=== PATIENT | female | born 1955 | race Caucasian/White ===

== ENCOUNTER → 2017-03-30 10:04 | Outpatient (CLI) | payer BC, MEDICARE ==
[2012-08-01 11:01] VITALS: BMI 32.6
== END | disposition home or self-care (01) ==
LOC: D.RT 10:00
DX: J44.9 Chronic obstructive pulmonary disease, unspecified (principal)

== ENCOUNTER 2017-09-14 12:11 | Day surgery (SDC) | payer BC, MEDICARE ==
[~2017-09-14] VITALS: Ht 160 cm; Wt 82.3 kg
[2017-09-14 13:00] LABS: HEMATOCRIT 46.2 % (36.0-48.0); HEMOGLOBIN 14.5 g/dL (12-16); MCH 28.2 pg (26.0-34.0); MCHC 31.4 g/dL (31.0-37.0); MCV 89.7 fL (80.0-100.0); MEAN PLATELET VOLUME 11.7 fL (7.4-10.4); RBC 5.15 10x6/uL (4.00-5.40); RDW 12.8 % (11.5-14.5); WBC 8.2 10x3/uL (4.8-10.8)
[2017-09-14 13:18] LABS: CALC OSMOLALITY 285 mosm/kg (275-300); CALCIUM 9.3 mg/dL (8.5-10.1); CARBON DIOXIDE 31.2 mmol/L (21.0-32.0); CHLORIDE - SERUM 101 mmol/L (98-107); CREATININE - SERUM 0.8 mg/dL (0.6-1.3); GLUCOSE 184 mg/dL (74-106); POTASSIUM - SERUM 4.2 mmol/L (3.5-5.1); SODIUM 142 mmol/L (136-145); UREA NITROGEN 7 mg/dL (7-18); eGFR NON AFRICAN AMERICAN 77 mL/min (90-120)
[2017-09-14] MEDS ORDERED: THEOCHRON300 MG PO (14:20)
[2017-09-14] MEDS ORDERED: SPIRIVA18 MCG INH (14:21)
[2017-09-14] MEDS ORDERED: DESERYL100 MG PO (14:21)
[2017-09-14] MEDS ORDERED: REQUIP0.5 MG PO (14:22)
[2017-09-14] MEDS ORDERED: SINGULAIR10 MG PO (14:22)
[2017-09-14] MEDS ORDERED: NOVOLOG100 U/M1 SC (14:23)
[2017-09-14] MEDS ORDERED: KLOR-CON 1010 MEQ PO (14:23)
[2017-09-14] MEDS ORDERED: NEURONTIN 300300 MG PO (14:23)
[2017-09-14] MEDS ORDERED: CELEXA40 MG PO (14:24)
[2017-09-14] MEDS ORDERED: LASIX40 MG PO (14:24)
[2017-09-14] MEDS ORDERED: MUCINEX600 MG PO (14:24)
[2017-09-14] MEDS ORDERED: TOUJEO SOL300 UNIT/1 (14:25)
[2017-09-14] MEDS ORDERED: XOPENEX HFA15 GM (14:25)
[2017-09-14] MEDS ORDERED: XANAX0.25 MG PO (14:26)
[2017-09-14] MEDS ORDERED: ATROVENT HFA12.9 GM INH (14:26)
[2017-09-14 14:27] VITALS: BP 140/77; Ht 160 cm; Wt 82.3 kg
--- NOTE | 2017-09-14 15:52 | NUR ---
TRANSVERSE POLYP WITH COLD SNARE NO HEAT.
--- NOTE | 2017-09-14 15:57 | NUR ---
CECCAL POLYP WITH HOT SNARE
--- NOTE | 2017-09-14 16:18 | NUR ---
[facility] 2CC OF KAIA INK ASCENDING POLYP AT 80CM.
--- NOTE | 2017-09-14 17:48 | NUR ---
1800 DISCHARGE INSTRUCTIONS COMPLETE. PT HAS NO QUESTIONS OR CONCERNS AT THIS TIME. PT TO FOLLOW UP WITH DOCTOR NAIN-TOLD PT TO CALL TO MAKE APPOINTMENT SINCE IT WAS AFTER HOURS-ALSO FAXED ORDER TO DR. GILLETTE'S OFFICE. ESCORTED OUT BY [facility] [place].
--- NOTE | 2017-09-20 11:02 | OP ---
PATIENT NAME: WERO GOLDSTEIN MEDICAL RECORD: [id number] :57 LOCATION:[facility] ADMISSION DATE: SURGEON: KAREN LOCKHART DO DATE OF OPERATION: 09/14/2017 PROCEDURE: Colonoscopy with polypectomy, biopsy, and submucosal injection. INDICATIONS FOR PROCEDURE: Screening colonoscopy and chronic constipation. SCOPE: Olympus video pediatric colonoscope. MEDICATIONS: Propofol per anesthesia. ESTIMATED BLOOD LOSS: Minimal. COMPLICATIONS: None. FINDINGS: Informed consent was given. The patient was made comfortable with the above medication. After reaching an adequate level of sedation by slow IV push, the patient was placed on her left side. A digital rectal examination was performed and it was normal. The endoscope was then advanced under direct visualization through the rectum to the cecum with visualization of the appendiceal orifice and ileocecal valve. The scope was slowly withdrawn and mucosa was carefully examined. The prep quality was good. There was evidence of pandiverticulosis on this examination without evidence of diverticulitis. In the cecum, there were 2 polyps located right near each other. They were benign appearing and sessile. One of the 2 polyps did have a slight extension of polypoid features, which were not raised. The larger of the two measured approximately 1 cm while the second measured approximately 4 mm in diameter. These were located right in the appendiceal orifice. Due to their location, biopsies were taken without cautery or removal. In the ascending colon, there was a large polyp located on a fold. It had extensions along the fold. It measured approximately 1.5 cm x 2.5 cm. A lift was attempted in consideration of removal of this polyp. The margins could not clearly be seen upon lifting, so no removal was attempted. Biopsies were taken to submit for histopathology. Due to the size and location of this polyp, tattoo was placed approximately 2 cm both proximally and distally on the wall of the colon that the polyp was located on. In the transverse colon, there was a small benign appearing sessile polyp, which measured approximately 3 mm in diameter. It was removed using hot forceps in one piece and completely retrieved. There was a second polyp located in the transverse colon, which was a benign appearing sessile polyp, which measured approximately 6 mm in diameter. It was removed using a hot snare in one piece and completely retrieved. In the rectum, there were 3 separate polyps, which were benign-appearing and sessile. They ranged in size from 4 mm to 8 mm in size. They were all removed using a hot snare in one piece and completely retrieved. Retroflexion was performed in the rectum with a normal appearing rectal wall. The endoscope was then withdrawn from the patient. The patient tolerated the procedure well and there were no complications. IMPRESSION: 1. Multiple polyps of differing sizes and locations as described above. 2. Pandiverticulosis of moderate severity. PLAN AND RECOMMENDATIONS: 1. Discharge home when recovery parameters are met. OPERATIVE REPORT [id number] WERO GOLDSTEIN 2. Follow up biopsy specimen results. 3. High fiber diet. 4. Continue current medications. 5. Referral to Dr. Robbins for consideration of whether or not the cecal polyp can be removed endoscopically versus surgical removal due to its location as well as evaluation of the ascending colon polyp for combination of snare therapy and APC therapy versus surgical resection. Biopsies are pending of these polyps. 6. Further recall recommendations will be dependent on therapy with Dr. Robbins. TRANSINT:[id number] Voice Confirmation ID: [id number] DOCUMENT ID: [id number] KAREN LOCKHART DO at 1102 CC: [id number] DICTATION DATE: 09/14/17 1649 CIRCULAR KNITTER HELPER: 09/14/17 1724 [facility] 09/14/17 [address] [place] [address]
[2017-11-28] MEDS ORDERED: CITRACAL + D E1 EACH PO (14:58)
== END 2017-09-14 18:00 | disposition home or self-care (01) ==
LOC: D.OPS 12:11
PROVIDERS: Anesthesiology
DX: Z12.11 Encounter for screening for malignant neoplasm of colon (principal); K63.5 Polyp of colon; K62.1 Rectal polyp; K57.30 Diverticulosis of large intestine without perforation or abscess without bleeding; K59.09 Other constipation; Z01.812 Encounter for preprocedural laboratory examination

== ENCOUNTER 2017-11-29 05:10 | Inpatient (IN) | payer BC, MEDICARE ==
[~2017-11-29] VITALS: Ht 160 cm; Wt 82.7 kg
[2017-11-29] VITALS (10 sets, daily range): BP systolic 87–120; BP diastolic 55–75; BMI 32.8; BMI 32.3
--- NOTE | ~2017-11-29 | OP ---
PATIENT NAME: WERO GOLDSTEIN MEDICAL RECORD: [id number] :57 LOCATION:[facility] D.2312 ADMISSION DATE:11/29/17 SURGEON: CHINO GILLETTE MD DATE OF OPERATION: 11/29/2017 PREOPERATIVE DIAGNOSES: 1. 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 2. Ascending colon polyp. 3. End-stage lung disease. POSTOPERATIVE DIAGNOSES: 1. 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 2. Ascending colon polyp. 3. Extensive intra-abdominal adhesions. 4. End-stage lung disease. PROCEDURE: Hand-assisted laparoscopic surgery -- right hemicolectomy with conversion to an open procedure. SURGEON: Chino Gillette MD CYANIDE CASE HARDENER: None. BLOOD LOSS: Minimal. ANESTHESIA: General. COMPLICATIONS: None. The risks, possible complications and alternatives to the procedure were explained to the patient. She elects to proceed. OPERATIVE COURSE: The patient was conveyed to the operating room electively on 11/29/2017. General anesthesia was induced by the anesthesia staff. The abdomen was sterilely prepped and draped. A small skin arnold was accomplished in the left upper quadrant. A Veress needle was inserted through the skin arnold into the peritoneal cavity. CO2 insufflation was begun. Once a sufficient pneumoperitoneum had been achieved, a 5-mm trocar was inserted in the left side of the abdomen. There were extensive intraabdominal adhesions and it was apparent that a significant adhesiolysis was going to need to take place in order to perform this procedure. A total of 4 more trocars were inserted either in the midline or in the left side of the abdomen. I began to take down numerous adhesions. These adhesions were grade II and grade III adhesions to the undersurface of the hernia mesh. Once I had taken out all the adhesions that I could from the left side of the abdomen, I elected to insert the GelPort. An incision was accomplished transversely in the right side of the abdomen. I dissected down through the skin and subcutaneous tissue. I incised the external oblique aponeurosis along the direction of its fibers. I then incised the internal oblique muscle along the direction of its fibers. I entered the peritoneal cavity sharply. The Rupesh retractor was placed. The GelPort was then applied over the Rupesh retractor. CO2 insufflation was begun. Laparoscopically, I incised along the right white line of Toldt. I mobilized the hepatic flexure as well. I then took off the GelPort. I exteriorized the right colon. Some additional OPERATIVE REPORT [id number] WERO GOLDSTEIN adhesiolysis was performed through the Rupesh retractor. This was a thorough adhesiolysis and I lysed all the adhesions that I could identify. I ran the small bowel twice from the ligament of Treitz to the ileocecal valve. There was no apparent injury to the small bowel. Once I had exteriorized the right colon, I swept down the ureter. I swept down the duodenum. I chose the proximal extent of my resection to be just proximal to the ileocecal valve. A window was created in the mesentery of the small bowel and I stapled across the ileum with a MUKESH-75 stapler. The distal extent of the resection was going to be the proximal transverse colon. A window was created in the mesentery of the colon and I stapled across the colon here with the MUKESH-75 stapler. The interpose mesentery was taken down with the EnSeal device. Meticulous hemostasis was achieved with the EnSeal device. The specimen was then placed on the back table and I opened the specimen and I identified the tattooed areas that marked the distal extent of the polypoid lesions. I then rescrubbed and regowned. I brought the distal small bowel into apposition with the transverse colon. It was kept in place with 3-0 Vicryl sutures. A small enterotomy and small colotomy were accomplished. Anvils of the MUKESH-75 stapler were advanced and then fired. The resulting enterocolonic defect was then closed with a single firing of TA 60 stapler. I ensured the small bowel was not twisted on its mesentery. I irrigated the right upper quadrant. There was no bleeding even at low pressure of 8. I approximated the peritoneum with running #1 Vicryl. The transverse abdominis muscle and the internal oblique muscles were closed with running #1 Vicryls. The external oblique aponeurosis and muscle was closed with running #1 Vicryls. The subdermis was approximated with interrupted 3-0 Vicryls. Skin in the right upper quadrant was closed with a running intracuticular 3-0 Vicryl. At the trocar sites at the umbilicus the skin was closed with multiple interrupted 4-0 Vicryl Rapide sutures. The other skin incisions were closed with interrupted intracuticular 3-0 Vicryls. Benzoin and Steri-Strips were applied. The patient was then extubated and conveyed to the post-anesthesia care unit where she was in stable condition. TRANSINT:[id number] Voice Confirmation ID: [id number] DOCUMENT ID: [id number] CC: Dr. Osman Blanco [phone] CHINO GILLETTE MD CC: YVONNE DIAZ MD, JESSICA TERRAZAS MD, DR. OSMAN BLANCO, [id number], MARIA DEL CARMEN GONZALEZ and KAREN LOCKHART DO DICTATION DATE: 12/01/17 1040 UNDERGROUND MINE SUPERINTENDENT: 12/01/17 1105 ADM IN [address] [place] [address]
--- NOTE | ~2017-11-29 | DS ---
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 PROCEDURES: Hand-assisted laparoscopic surgery - right hemicolectomy with conversion to an open procedure. OTHER DIAGNOSES: Serrated polyp with high-grade dysplastic changes in the cecum. Tubulovillous adenoma of the ascending colon. Serrated adenoma of the ascending colon. Three pericolonic lymph nodes with no significant pathologic changes. HOSPITAL COURSE: The patient underwent the above operative procedure. Her pain was controlled postoperatively. She had return of bowel function. Her diet was advanced. She is being dismissed home. The patient is having some perineal pain as well as vaginal pain. I am going to refer her to a tobacco classer regarding this. The final pathology from the surgical specimen did not reveal any residual microinvasive cancer, so it must have been removed endoscopically. TRANSINT:[id number] Voice Confirmation ID: [id number] DOCUMENT ID: [id number] CC: Dr. Osman Blanco [phone] CHINO GILLETTE MD CC: YVONNE DIAZ MD, JESSICA TERRAZAS MD, DR. OSMAN BLANCO, [id number], MARIA DEL CARMEN GONZALEZ and KAREN LOCKHART DO DICTATION DATE: 12/06/17 1513 NURSING INSTRUCTOR: 12/07/17 0747 DIS IN 12/06/17 [address] [place] [address]
[~2017-11-29 05:10] MED LIST: ATROVENT HFA12.9 GM INH; CELEXA40 MG PO; CITRACAL + D E1 EACH PO; DESERYL100 MG PO; KLOR-CON 1010 MEQ PO; LASIX40 MG PO; MUCINEX600 MG PO; NEURONTIN 300300 MG PO; NOVOLOG100 U/M1 SC; REQUIP0.5 MG PO; SINGULAIR10 MG PO; SPIRIVA18 MCG INH; THEOCHRON300 MG PO; TOUJEO SOL300 UNIT/1; XANAX0.25 MG PO; XOPENEX HFA15 GM
[2017-11-29 06:47] LABS: HEMATOCRIT 41.8 % (36.0-48.0); HEMOGLOBIN 13.3 g/dL (12-16); MCH 27.9 pg (26.0-34.0); MCHC 31.8 g/dL (31.0-37.0); MCV 87.6 fL (80.0-100.0); RBC 4.77 10x6/uL (4.00-5.40); RDW 12.7 % (11.5-14.5); WBC 11.1 10x3/uL (4.8-10.8)
[2017-11-29 06:58] LABS: CALC OSMOLALITY 289 mosm/kg (275-300); CALCIUM 7.9 mg/dL (8.5-10.1); CARBON DIOXIDE 32.6 mmol/L (21.0-32.0); CHLORIDE - SERUM 102 mmol/L (98-107); CREATININE - SERUM 0.8 mg/dL (0.6-1.3); GLUCOSE 202 mg/dL (74-106); POTASSIUM - SERUM 3.4 mmol/L (3.5-5.1); SODIUM 143 mmol/L (136-145); UREA NITROGEN 11 mg/dL (7-18); eGFR NON AFRICAN AMERICAN 77 mL/min (90-120)
[2017-11-29 15:52] LABS: BASOPHILS 0.1 % (0-2); EOSINOPHILS 0.1 % (0-7); HEMATOCRIT 36.5 % (36.0-48.0); HEMOGLOBIN 11.2 g/dL (12-16); IMMATURE GRANULOCYTES 0.3 % (0-5); LYMPHOCYTES 5.7 % (15-50); MCH 27.5 pg (26.0-34.0); MCHC 30.7 g/dL (31.0-37.0); MEAN PLATELET VOLUME 11.8 fL (7.4-10.4); NEUTROPHILS 87.8 % (40-80); PLATELET COUNT 141 10x3/uL (130-400); RBC 4.07 10x6/uL (4.00-5.40); RDW 12.7 % (11.5-14.5)
[2017-11-29 16:14] LABS: MCV 89.7 fL (80.0-100.0); WBC 15.6 10x3/uL (4.8-10.8)
[2017-11-29 16:30] LABS: CALC OSMOLALITY 292 mosm/kg (275-300); CALCIUM 7.2 mg/dL (8.5-10.1); CARBON DIOXIDE 27.8 mmol/L (21.0-32.0); CHLORIDE - SERUM 108 mmol/L (98-107); CREATININE - SERUM 0.8 mg/dL (0.6-1.3); GLUCOSE 233 mg/dL (74-106); MAGNESIUM - SERUM 1.7 mg/dL (1.8-2.4); PHOSPHOROUS 4.3 mg/dL (2.5-4.9); POTASSIUM - SERUM 3.9 mmol/L (3.5-5.1); SODIUM 144 mmol/L (136-145); UREA NITROGEN 11 mg/dL (7-18); eGFR NON AFRICAN AMERICAN 77 mL/min (90-120)
[2017-11-30] VITALS (24 sets, daily range): BP systolic 93–134; BP diastolic 43–81; BMI 32.2
[2017-11-30 04:38] LABS: BASOPHILS 0.1 % (0-2); EOSINOPHILS 0.2 % (0-7); HEMATOCRIT 34.4 % (36.0-48.0); HEMOGLOBIN 10.6 g/dL (12-16); IMMATURE GRANULOCYTES 0.3 % (0-5); LYMPHOCYTES 11.7 % (15-50); MCH 27.7 pg (26.0-34.0); MCHC 30.8 g/dL (31.0-37.0); MCV 89.8 fL (80.0-100.0); MEAN PLATELET VOLUME 12.1 fL (7.4-10.4); NEUTROPHILS 78.7 % (40-80); PLATELET COUNT 153 10x3/uL (130-400); RBC 3.83 10x6/uL (4.00-5.40); RDW 13.1 % (11.5-14.5)
[2017-11-30 04:39] LABS: WBC 10.6 10x3/uL (4.8-10.8)
[2017-11-30 04:42] LABS: ALBUMIN 2.9 g/dL (3.4-5.0); ALKALINE PHOSPHATASE 85 U/L (46-116); ALT (SGPT) 19 U/L (10-68); BILIRUBIN - TOTAL 0.47 mg/dL (0.2-1.3); CALC OSMOLALITY 285 mosm/kg (275-300); CALCIUM 7.1 mg/dL (8.5-10.1); CARBON DIOXIDE 27.9 mmol/L (21.0-32.0); CHLORIDE - SERUM 109 mmol/L (98-107); CREATININE - SERUM 0.7 mg/dL (0.6-1.3); POTASSIUM - SERUM 4.1 mmol/L (3.5-5.1); PROTEIN - SERUM 5.6 g/dL (6.4-8.2); SODIUM 142 mmol/L (136-145); UREA NITROGEN 9 mg/dL (7-18); eGFR NON AFRICAN AMERICAN 90 mL/min (90-120)
[2017-11-30 04:43] LABS: GLUCOSE 178 mg/dL (74-106); MAGNESIUM - SERUM 2.3 mg/dL (1.8-2.4); PHOSPHOROUS 2.3 mg/dL (2.5-4.9)
[2017-12-01] VITALS (15 sets, daily range): BP systolic 106–147; BP diastolic 52–86
[2017-12-01 04:31] LABS: BASOPHILS 0.1 % (0-2); EOSINOPHILS 1.1 % (0-7); HEMOGLOBIN 9.8 g/dL (12-16); IMMATURE GRANULOCYTES 0.9 % (0-5); MCH 27.6 pg (26.0-34.0); MCHC 29.7 g/dL (31.0-37.0); MEAN PLATELET VOLUME 11.9 fL (7.4-10.4); MONOCYTES 10.2 % (2-11); NEUTROPHILS 77.7 % (40-80); RBC 3.55 10x6/uL (4.00-5.40); WBC 10.5 10x3/uL (4.8-10.8)
[2017-12-01 04:37] LABS: PLATELET COUNT 119 10x3/uL (130-400)
[2017-12-01 04:54] LABS: CALC OSMOLALITY 284 mosm/kg (275-300); CALCIUM 7.8 mg/dL (8.5-10.1); CARBON DIOXIDE 26.3 mmol/L (21.0-32.0); CHLORIDE - SERUM 110 mmol/L (98-107); CREATININE - SERUM 0.6 mg/dL (0.6-1.3); POTASSIUM - SERUM 4.1 mmol/L (3.5-5.1); SODIUM 143 mmol/L (136-145); UREA NITROGEN 8 mg/dL (7-18); eGFR NON AFRICAN AMERICAN > 90 mL/min (90-120)
[2017-12-01 04:58] LABS: GLUCOSE 130 mg/dL (74-106)
[2017-12-01 05:28] LABS: PRO BNP 233 pg/mL (0-125)
[2017-12-02 03:00] VITALS: BP 121/65
[2017-12-02 05:44] LABS: BASOPHILS 0.2 % (0-2); EOSINOPHILS 4.5 % (0-7); HEMATOCRIT 30.1 % (36.0-48.0); HEMOGLOBIN 9.3 g/dL (12-16); IMMATURE GRANULOCYTES 0.7 % (0-5); MCH 27.4 pg (26.0-34.0); MCHC 30.9 g/dL (31.0-37.0); MCV 88.8 fL (80.0-100.0); MEAN PLATELET VOLUME 11.6 fL (7.4-10.4); MONOCYTES 11.2 % (2-11); NEUTROPHILS 70.4 % (40-80); PLATELET COUNT 125 10x3/uL (130-400); RBC 3.39 10x6/uL (4.00-5.40); RDW 12.6 % (11.5-14.5); WBC 10.2 10x3/uL (4.8-10.8)
[2017-12-02 06:01] LABS: ALBUMIN 2.4 g/dL (3.4-5.0); ALKALINE PHOSPHATASE 78 U/L (46-116); ALT (SGPT) 13 U/L (10-68); BILIRUBIN - TOTAL 0.58 mg/dL (0.2-1.3); CALC OSMOLALITY 273 mosm/kg (275-300); CALCIUM 7.8 mg/dL (8.5-10.1); CARBON DIOXIDE 27.5 mmol/L (21.0-32.0); CHLORIDE - SERUM 103 mmol/L (98-107); CREATININE - SERUM 0.6 mg/dL (0.6-1.3); GLUCOSE 111 mg/dL (74-106); MAGNESIUM - SERUM 1.5 mg/dL (1.8-2.4); POTASSIUM - SERUM 3.5 mmol/L (3.5-5.1); PROTEIN - SERUM 5.8 g/dL (6.4-8.2); SODIUM 138 mmol/L (136-145); UREA NITROGEN 5 mg/dL (7-18); eGFR NON AFRICAN AMERICAN > 90 mL/min (90-120)
[2017-12-02 07:00] VITALS: BP 120/66
[2017-12-02 11:00] VITALS: BP 137/74
[2017-12-02 15:05] VITALS: BP 122/77
[2017-12-02 19:00] VITALS: BP 118/76
[2017-12-02 23:00] VITALS: BP 109/85
[2017-12-03 03:00] VITALS: BP 121/80
[2017-12-03 03:54] LABS: BASOPHILS 0.2 % (0-2); EOSINOPHILS 4.9 % (0-7); HEMOGLOBIN 10.8 g/dL (12-16); IMMATURE GRANULOCYTES 0.8 % (0-5); LYMPHOCYTES 13.4 % (15-50); MCH 27.5 pg (26.0-34.0); MCHC 31.8 g/dL (31.0-37.0); MEAN PLATELET VOLUME 10.7 fL (7.4-10.4); MONOCYTES 10.8 % (2-11); NEUTROPHILS 69.9 % (40-80); RBC 3.93 10x6/uL (4.00-5.40); RDW 12.3 % (11.5-14.5); WBC 10.7 10x3/uL (4.8-10.8)
[2017-12-03 03:59] LABS: MCV 86.5 fL (80.0-100.0); PLATELET COUNT 184 10x3/uL (130-400)
[2017-12-03 04:16] LABS: ALBUMIN 2.6 g/dL (3.4-5.0); ALKALINE PHOSPHATASE 88 U/L (46-116); ALT (SGPT) 13 U/L (10-68); CALC OSMOLALITY 273 mosm/kg (275-300); CALCIUM 8.3 mg/dL (8.5-10.1); CARBON DIOXIDE 29.8 mmol/L (21.0-32.0); CHLORIDE - SERUM 99 mmol/L (98-107); CREATININE - SERUM 0.6 mg/dL (0.6-1.3); GLUCOSE 149 mg/dL (74-106); MAGNESIUM - SERUM 1.5 mg/dL (1.8-2.4); PHOSPHOROUS 1.8 mg/dL (2.5-4.9); POTASSIUM - SERUM 3.3 mmol/L (3.5-5.1); PROTEIN - SERUM 6.5 g/dL (6.4-8.2); SODIUM 137 mmol/L (136-145); UREA NITROGEN 5 mg/dL (7-18); eGFR NON AFRICAN AMERICAN > 90 mL/min (90-120)
[2017-12-03 07:00] VITALS: BP 136/64
[2017-12-03 11:00] VITALS: BP 132/66
[2017-12-03 15:00] VITALS: BP 141/65
[2017-12-03 19:00] VITALS: BP 119/63; BP 121/52
[2017-12-03 20:30] VITALS: BP 124/78
[2017-12-04] VITALS: BP 134/57
[2017-12-04 04:00] VITALS: BP 130/60
[2017-12-04 06:40] LABS: CARBON DIOXIDE 37.2 mmol/L (21.0-32.0); CHLORIDE - SERUM 99 mmol/L (98-107); CREATININE - SERUM 0.5 mg/dL (0.6-1.3); GLUCOSE 165 mg/dL (74-106); SODIUM 142 mmol/L (136-145); eGFR NON AFRICAN AMERICAN > 90 mL/min (90-120)
[2017-12-04 06:41] LABS: CALC OSMOLALITY 283 mosm/kg (275-300); UREA NITROGEN 3 mg/dL (7-18)
[2017-12-04 06:42] LABS: POTASSIUM - SERUM 2.8 mmol/L (3.5-5.1)
[2017-12-04 08:29] VITALS: BP 115/49
[2017-12-04 11:09] VITALS: BP 112/58
[2017-12-04 14:49] VITALS: BP 110/62
[2017-12-04 20:30] VITALS: BP 113/58
[2017-12-04 21:06] LABS: ALP - ISO (ALP) 80 IU/L (39-117); ALP - ISO (BONE) FRACTION 34 % (14-68); ALP - ISO (LIVER) FRACTION 66 % (18-85); ALP - ISO(INTESTINAL) FRACTION 0 % (0-18)
[2017-12-05 00:30] VITALS: BP 128/59
[2017-12-05 04:00] VITALS: BP 152/66
[2017-12-05 06:57] LABS: CALC OSMOLALITY 278 mosm/kg (275-300); CALCIUM 8.2 mg/dL (8.5-10.1); CARBON DIOXIDE 36.5 mmol/L (21.0-32.0); CHLORIDE - SERUM 100 mmol/L (98-107); CREATININE - SERUM 0.6 mg/dL (0.6-1.3); GLUCOSE 175 mg/dL (74-106); POTASSIUM - SERUM 3.3 mmol/L (3.5-5.1); SODIUM 139 mmol/L (136-145); UREA NITROGEN 4 mg/dL (7-18); eGFR NON AFRICAN AMERICAN > 90 mL/min (90-120)
[2017-12-05 08:20] VITALS: BP 125/75
[2017-12-05 10:30] VITALS: Ht 160 cm; Wt 82.7 kg
[2017-12-05 11:56] VITALS: BP 143/57
[2017-12-05 14:51] LABS: APPEARANCE CLEAR (CLEAR); BILIRUBIN NEGATIVE (NEGATIVE); COLOR YELLOW (YELLOW); GLUCOSE NEGATIVE (NEGATIVE); KETONE NEGATIVE (NEGATIVE); NITRITE NEGATIVE (NEGATIVE); PROTEIN NEGATIVE (NEGATIVE); UROBILINOGEN NORMAL (NORMAL)
[2017-12-05 15:35] VITALS: BP 132/65
[2017-12-05 19:00] VITALS: BP 111/58
[2017-12-06 04:00] VITALS: BP 114/34
[2017-12-06 04:56] LABS: BASOPHILS 0.2 % (0-2); EOSINOPHILS 5.5 % (0-7); HEMATOCRIT 33.8 % (36.0-48.0); HEMOGLOBIN 10.3 g/dL (12-16); IMMATURE GRANULOCYTES 1.4 % (0-5); LYMPHOCYTES 12.5 % (15-50); MCH 27.4 pg (26.0-34.0); MCHC 30.5 g/dL (31.0-37.0); MCV 89.9 fL (80.0-100.0); MEAN PLATELET VOLUME 10.6 fL (7.4-10.4); MONOCYTES 10.5 % (2-11); NEUTROPHILS 69.9 % (40-80); RBC 3.76 10x6/uL (4.00-5.40); RDW 13.1 % (11.5-14.5); WBC 11.7 10x3/uL (4.8-10.8)
[2017-12-06 05:07] LABS: PLATELET COUNT 236 10x3/uL (130-400)
[2017-12-06 05:28] LABS: % SATURATION 8 % (15-55); IRON 21 ug/dl (35-150); TOTAL IRON BIND CAPACITY 247 ug/dl (260-445); UNSAT IRON BIND CAPACITY 226 ug/dl (150-375)
[2017-12-06 05:53] LABS: CALC OSMOLALITY 270 mosm/kg (275-300); CALCIUM 8.8 mg/dL (8.5-10.1); CARBON DIOXIDE 30.9 mmol/L (21.0-32.0); CHLORIDE - SERUM 97 mmol/L (98-107); FERRITIN 134 ng/mL (3-244); GLUCOSE 178 mg/dL (74-106); POTASSIUM - SERUM 3.6 mmol/L (3.5-5.1); SODIUM 135 mmol/L (136-145); UREA NITROGEN 5 mg/dL (7-18); eGFR NON AFRICAN AMERICAN 77 mL/min (90-120)
[2017-12-06 05:54] LABS: CREATININE - SERUM 0.8 mg/dL (0.6-1.3)
[2017-12-06 08:37] VITALS: BP 111/40
[2017-12-06 12:13] VITALS: BP 127/61
[2017-12-06] MEDS ORDERED: COLACE100 MG PO (15:32)
[2017-12-06] MEDS ORDERED: HYDROCODON-ACE1 EAC7 PO (15:33)
[2017-12-06 16:46] VITALS: BP 120/58
[2017-12-07 09:18] LABS: FOLATE (FOLIC ACID) - SERUM 7.5 ng/mL (>3.0)
== END 2017-12-06 17:29 | disposition home or self-care (01) | DRG 329 ==
LOC: D.SDCHOLD 05:10 → D.ICU 05:10 → D.M2 05:10 → D.SDCHOLD 08:00 → D.ICU 14:53 → D.M2 12-03 22:05
PROVIDERS: Anesthesiology; Internal Medicine Nephrology; Surgery
PROC: 0DTF0ZZ Resection of Right Large Intestine, Open Approach (ICD-10-PCS; 2017-11-29)
PROC: 0DNW4ZZ Release Peritoneum, Percutaneous Endoscopic Approach (ICD-10-PCS; principal; 2017-11-29 08:00)
DX: C18.0 Malignant neoplasm of cecum (principal); N18.6 End stage renal disease; I12.0 Hypertensive chronic kidney disease with stage 5 chronic kidney disease or end stage renal disease; K66.0 Peritoneal adhesions (postprocedural) (postinfection); Z53.31 Laparoscopic surgical procedure converted to open procedure; M79.1 Myalgia; E11.42 Type 2 diabetes mellitus with diabetic polyneuropathy; E11.22 Type 2 diabetes mellitus with diabetic chronic kidney disease; J44.9 Chronic obstructive pulmonary disease, unspecified; D50.9 Iron deficiency anemia, unspecified; E87.6 Hypokalemia; K63.5 Polyp of colon; Z87.891 Personal history of nicotine dependence

== ENCOUNTER → 2017-12-15 14:40 | Outpatient (CLI) | payer BC, MEDICARE ==
[2017-12-05 10:30] VITALS: BMI 32.2
[~2017-12-15 14:40] MED LIST changes: +COLACE100 MG PO; +HYDROCODON-ACE1 EAC7 PO
== END | disposition home or self-care (01) ==
LOC: D.LABREF 14:40
DX: L76.82 Other postprocedural complications of skin and subcutaneous tissue (principal)

== ENCOUNTER → 2018-03-03 22:00 | Outpatient (CLI) | payer BC, MEDICARE ==
[2017-12-05 10:30] VITALS: BMI 32.2
== END | disposition home or self-care (01) ==
LOC: D.MAMMO 13:45
DX: Z12.31 Encounter for screening mammogram for malignant neoplasm of breast (principal)

== ENCOUNTER → 2018-12-06 12:57 | Outpatient (CLI) | payer BC, MEDICARE ==
[2017-12-05 10:30] VITALS: BMI 32.2
== END | disposition home or self-care (01) ==
LOC: D.CT 12:57
DX: R91.8 Other nonspecific abnormal finding of lung field (principal)

== ENCOUNTER 2019-07-16 18:59 | Inpatient (IN) | payer BC, MEDICARE ==
[~2019-07-16] VITALS: Ht 162.6 cm; Wt 80.9 kg
[2019-07-16 20:16] LABS: BASOPHILS 0.1 % (0-2); EOSINOPHILS 0.5 % (0-7); HEMATOCRIT 41.3 % (36.0-48.0); HEMOGLOBIN 13.5 g/dL (12-16); IMMATURE GRANULOCYTES 0.3 % (0-5); LYMPHOCYTES 6.4 % (15-50); MCHC 32.7 g/dL (31.0-37.0); MCV 85.7 fL (80.0-100.0); MEAN PLATELET VOLUME 12.2 fL (7.4-10.4); MONOCYTES 5.6 % (2-11); NEUTROPHILS 87.1 % (40-80); RBC 4.82 10x6/uL (4.00-5.40); RDW 13.1 % (11.5-14.5); WBC 10.7 10x3/uL (4.8-10.8)
[2019-07-16 20:28] LABS: ALBUMIN 3.7 g/dL (3.4-5.0); ALKALINE PHOSPHATASE 159 U/L (46-116); ALT (SGPT) 15 U/L (10-68); BILIRUBIN - TOTAL 0.28 mg/dL (0.2-1.3); CALC OSMOLALITY 280 mosm/kg (275-300); CALCIUM 8.8 mg/dL (8.5-10.1); CHLORIDE - SERUM 99 mmol/L (98-107); CREATININE - SERUM 0.8 mg/dL (0.6-1.3); POTASSIUM - SERUM 4.6 mmol/L (3.5-5.1); PROTEIN - SERUM 7.7 g/dL (6.4-8.2); SODIUM 137 mmol/L (136-145); UREA NITROGEN 11 mg/dL (7-18); eGFR NON AFRICAN AMERICAN 77 mL/min (90-120)
[2019-07-16 20:29] LABS: GLUCOSE 240 mg/dL (74-106)
[2019-07-16 20:37] LABS: PLATELET COUNT 146 10x3/uL (130-400)
[2019-07-16 21:09] LABS: APPEARANCE CLEAR (CLEAR); BILIRUBIN NEGATIVE (NEGATIVE); COLOR YELLOW (YELLOW); GLUCOSE 100 mg/dL (NEGATIVE); KETONE NEGATIVE (NEGATIVE); NITRITE NEGATIVE (NEGATIVE); PROTEIN NEGATIVE (NEGATIVE); UROBILINOGEN NORMAL (NORMAL)
[2019-07-16 21:11] LABS: BACTERIA FEW /hpf (NEGATIVE); EPITHELIAL CELLS 0-5 /hpf (0-5); RED CELLS - URINE 0-5 /hpf (0-5); WHITE CELLS - URINE 0-5 /hpf (NEGATIVE)
--- NOTE | 2019-07-17 00:07 | NUR ---
PT ARRIVED TO THE FLOOR VIA WC. O2 NC 3L. AT BEDSIDE. NO S/S OF DISTRESS NOTED. PAIN 05/02. WILL CTM.
[2019-07-17 01:00] VITALS: BP 106/57
[2019-07-17 04:00] VITALS: BP 98/51
[2019-07-17 06:42] LABS: CALC OSMOLALITY 285 mosm/kg (275-300); CARBON DIOXIDE 31.4 mmol/L (21.0-32.0); CHLORIDE - SERUM 104 mmol/L (98-107); CREATININE - SERUM 0.8 mg/dL (0.6-1.3); GLUCOSE 234 mg/dL (74-106); MAGNESIUM - SERUM 1.8 mg/dL (1.8-2.4); PHOSPHOROUS 3.6 mg/dL (2.5-4.9); SODIUM 140 mmol/L (136-145); UREA NITROGEN 10 mg/dL (7-18); eGFR NON AFRICAN AMERICAN 77 mL/min (90-120)
[2019-07-17 06:43] LABS: INR 0.98 (0.85-1.17); PROTIME 12.5 SECONDS (11.6-15.0)
[2019-07-17 06:44] LABS: BASOPHILS 0.1 % (0-2); EOSINOPHILS 0.8 % (0-7); HEMATOCRIT 36.1 % (36.0-48.0); HEMOGLOBIN 11.6 g/dL (12-16); IMMATURE GRANULOCYTES 0.4 % (0-5); LYMPHOCYTES 19.6 % (15-50); MCH 27.8 pg (26.0-34.0); MCHC 32.1 g/dL (31.0-37.0); MCV 86.4 fL (80.0-100.0); MEAN PLATELET VOLUME 11.7 fL (7.4-10.4); MONOCYTES 9.9 % (2-11); NEUTROPHILS 69.2 % (40-80); PLATELET COUNT 135 10x3/uL (130-400); RBC 4.18 10x6/uL (4.00-5.40); RDW 13.3 % (11.5-14.5); WBC 7.3 10x3/uL (4.8-10.8)
[2019-07-17 06:49] LABS: POTASSIUM - SERUM 3.9 mmol/L (3.5-5.1)
--- NOTE | 2019-07-17 07:00 | NUR ---
RECEIVED REPORT. ASSUMED CARE OF PATIENT. RESTING IN BED WITH EYES OPEN. IV FLUIDS INFUSING ORDERED. NO DISTRESS. CALL LIGHT WITHIN REACH.
[2019-07-17 08:00] VITALS: BP 112/55
--- NOTE | 2019-07-17 10:00 | NUR ---
PATIENT INQUIRING ABOUT CT SCANS SHE WAS SUPPOSED TO HAVE DONE IN THE ER LAST NIGHT. CALLED AND SPOKE TO MANDA AIKEN, AND SHE IS REVIEWING ALL OF THE PATIENTS INFORMATION AT THIS TIME. RELAYED THAT INFORMATION TO THE PATIENT.
[2019-07-17 12:04] VITALS: BP 116/60
--- NOTE | 2019-07-17 14:00 | NUR ---
RESTING IN BED. NO DISTRESS. CALL SLOAN WITHIN REACH.
[2019-07-17 14:27] VITALS: BMI 30.5
[2019-07-17 15:07] VITALS: BP 90/41
[2019-07-17 16:46] VITALS: Ht 162.6 cm; Wt 80.9 kg
--- NOTE | 2019-07-17 17:00 | NUR ---
OFF UNIT VIA WHEELCHAIR FOR CT OF HEAD AND ABD.
--- NOTE | 2019-07-17 17:30 | NUR ---
RETURNED TO UNIT, ABD AND HEAD CT COMPLETE AT THIS TIME. PATIENT SITTING TO SIDE OF BED, DINNER TRAY PROVIDED. RESTARTED HOME MEDICATIONS. NO DISTRESS.
[2019-07-17 20:00] VITALS: BP 113/60
[2019-07-18] VITALS: BP 115/57
[2019-07-18 04:00] VITALS: BP 104/52
[2019-07-18 05:53] LABS: BASOPHILS 0.3 % (0-2); EOSINOPHILS 2.8 % (0-7); HEMATOCRIT 35.5 % (36.0-48.0); HEMOGLOBIN 11.3 g/dL (12-16); IMMATURE GRANULOCYTES 0.3 % (0-5); LYMPHOCYTES 21.3 % (15-50); MCH 27.6 pg (26.0-34.0); MCHC 31.8 g/dL (31.0-37.0); MCV 86.6 fL (80.0-100.0); MEAN PLATELET VOLUME 11.4 fL (7.4-10.4); MONOCYTES 9.2 % (2-11); NEUTROPHILS 66.1 % (40-80); PLATELET COUNT 129 10x3/uL (130-400); RDW 13.2 % (11.5-14.5); WBC 6.1 10x3/uL (4.8-10.8)
[2019-07-18 06:24] LABS: CALC OSMOLALITY 282 mosm/kg (275-300); CALCIUM 8.3 mg/dL (8.5-10.1); CARBON DIOXIDE 36.1 mmol/L (21.0-32.0); CHLORIDE - SERUM 103 mmol/L (98-107); CREATININE - SERUM 0.6 mg/dL (0.6-1.3); GLUCOSE 167 mg/dL (74-106); MAGNESIUM - SERUM 1.8 mg/dL (1.8-2.4); PHOSPHOROUS 3.4 mg/dL (2.5-4.9); POTASSIUM - SERUM 3.7 mmol/L (3.5-5.1); SODIUM 141 mmol/L (136-145); UREA NITROGEN 6 mg/dL (7-18); eGFR NON AFRICAN AMERICAN > 90 mL/min (90-120)
--- NOTE | 2019-07-18 07:10 | NUR ---
REPORT RECEIVED FROM ROUND KILN DRAWER AND PATIENT CARE ASSUMED. PATIENT LAYING IN BED ON BACK AWAKE, ALERT AND ORIENTED X 4. PATIENT STATES DID NOT SLEEP WELL. STATES BED IS NOT COMFORTABLE. PATIENT IS OTHERWISE STABLE AND VSS. WILL CONTINE WITH PLAN OF CARE. SR UP X 2 BED IN LOW POSITION AND CALL LIGHT IN REACH.
[2019-07-18 09:51] VITALS: BP 124/59
--- NOTE | 2019-07-18 09:52 | MORECARE ---
CASE MANAGEMENT DISCHARGE SUMMARY PATIENT: WERO GOLDSTEIN UNIT: [id number] ADM DATE: 07/16/19 AGE: 64 : 57 SEX: F ROOM/BED: D.[facility] AUTHOR: ARIEL HARRISON PHYSICIAN: REFERRING PHYSICIAN: PINKY CALDERÓN MD DATE OF SERVICE: 07/18/19 Discharge Plan Patient Name: WERO GOLDSTEIN [facility] [facility] 1955 Planned Disposition: Home Anticipated Discharge Date: Discharge Date: Expected LOS: Initial Reviewer: [email or web address] Initial Review Date: 07/18/2019 Generated: 07/18/19 10:52 am DCPIA - Discharge Planning Initial Assessment Updated by [email or web address]: Nellie Ray on 07/18/19 9:50 am * Is the patient Alert and Oriented? Yes * PCP YONNY * [facility] * Preadmission Environment Home with Family * ADLs Independent * Other Equipment O2 , NEBS WALKER AND WC IF NEEDED * Community resources currently utilized None * Please name any agencies selected above. [facility] * Additional services required to return to the preadmission environment? No * Can the patient safely return to the preadmission environment? Yes * Has this patient been hospitalized within the prior 30 days at any hospital? No Patient Name: WERO GOLDSTEIN Page 41413 at 0952 All edits/amendments must be made on the electronic document DICTATION DATE: 07/18/19951 SANIPRACTIC PHYSICIAN: TAWANNA 07/18/19951 RPT#: [id number] DC DATE: STATUS: ADM IN [facility] [address] [place] [address] END OF REPORT
--- NOTE | 2019-07-18 10:01 | MORECARE ---
CASE MANAGEMENT DISCHARGE SUMMARY PATIENT: WERO GOLDSTEIN JESSICA UNIT: [id number] ADM DATE: 07/16/19 AGE: 64 : 57 SEX: F ROOM/BED: D.2554 AUTHOR: ARIEL HARRISON PHYSICIAN: REFERRING PHYSICIAN: PINKY CALDERÓN MD DATE OF SERVICE: 07/18/19 Discharge Plan Patient Name: WERO GOLDSTEIN Facility: [facility]:[place] : 1955 Planned Disposition: Home Anticipated Discharge Date: Discharge Date: Expected LOS: Initial Reviewer: [email or web address] Initial Review Date: 07/18/2019 Generated: 07/18/19 11:01 am Comments DCP- Discharge Planning Updated by [email or web address]: Nellie Ray on 07/18/19 8:[address] Patient Name: WERO GOLDSTEIN Admission Status: ER Accout number: [id number] Admission Date: 07-16-2019 : 1955 Admission Diagnosis: Attending: PINKY CALDERÓN Current LOS: 2 Anticipated DC Date: Planned Disposition: Home Primary Insurance: [employer] O Discharge Planning Comments: CM MET WITH PATIENT AND HER DON ABOUT DC PLANNING/NEEDS. STATES PLANS TO DC TO [facility] TODAY. DENIES NEED FOR REHAB, HH OR OTHER SERVICES. Repair Servicer: Nellie Ray DCPIA - Discharge Planning Initial Assessment Updated by [email or web address]: Nellie Ray on 07/18/19 9:50 am * Is the patient Alert and Oriented? Yes * PCP YONNY * Pharmacy [facility] * Preadmission Environment Home with Family * ADLs Independent * Other Equipment O2 , NEBS WALKER AND WC IF NEEDED * Community resources currently utilized None * Please name any agencies selected above. [facility] * Additional services required to return to the preadmission environment? No * Can the patient safely return to the preadmission environment? Yes * Has this patient been hospitalized within the prior 30 days at any hospital? No Last DP export: 07/18/19 8:52 a Patient Name: WERO GOLDSTEIN Page 08719 at 1001 All edits/amendments must be made on the electronic document DICTATION DATE: 07/18/19 100 SPACE SYSTEMS OPERATIONS SUPERINTENDENT: TAWANNA 07/18/19 100 RPT#: [id number] DC DATE: STATUS: ADM IN [facility] [address] [place] [address] END OF REPORT
--- NOTE | 2019-07-19 16:56 | MORECARE ---
CASE MANAGEMENT DISCHARGE SUMMARY PATIENT: WERO GOLDSTEIN JESSICA UNIT: [id number] ADM DATE: 07/16/19 AGE: 64 : 57 SEX: F ROOM/BED: D.8233 AUTHOR: ARIEL HARRISON PHYSICIAN: REFERRING PHYSICIAN: PINKY CALDERÓN MD DATE OF SERVICE: 07/19/19 Discharge Plan Patient Name: WERO GOLDSTEIN Facility: [facility]:[place] : 1955 Planned Disposition: Home Anticipated Discharge Date: Discharge Date: 07/18/2019 Expected LOS: Initial Reviewer: [email or web address] Initial Review Date: 07/18/2019 Generated: 07/19/19 5:56 pm Comments DCP- Discharge Planning Updated by [email or web address]: Nellie Ray on 07/18/19 8:[address] Patient Name: WERO GOLDSTEIN Admission Status: ER Accout number: [id number] Admission Date: 07-16-2019 : 1955 Admission Diagnosis: Attending: PINKY CALDERÓN Current LOS: 2 Anticipated DC Date: Planned Disposition: Home Primary Insurance: [employer] O Discharge Planning Comments: CM MET WITH PATIENT AND HER DON ABOUT DC PLANNING/NEEDS. STATES PLANS TO DC TO [place] [facility] TODAY. DENIES NEED FOR REHAB, HH OR OTHER SERVICES. Bus Attendant: Nellie Ray DCPIA - Discharge Planning Initial Assessment Updated by [email or web address]: Nellie Ray on 07/18/19 9:50 am * Is the patient Alert and Oriented? Yes * PCP YONNY * Pharmacy [facility] * Preadmission Environment Home with Family * ADLs Independent * Other Equipment O2 , NEBS WALKER AND WC IF NEEDED * Community resources currently utilized None * Please name any agencies selected above. [facility] * Additional services required to return to the preadmission environment? No * Can the patient safely return to the preadmission environment? Yes * Has this patient been hospitalized within the prior 30 days at any hospital? No Last DP export: 07/18/19 9:02 a Patient Name: WERO GOLDSTEIN Page 40217 at 1651 All edits/amendments must be made on the electronic document DICTATION DATE: 07/19/191655 FIELD COUNSEL: TAWANNA 07/19/191655 RPT#: [id number] DC DATE:07/18/19 STATUS: DIS IN [facility] [address] [place] [address] END OF REPORT
== END 2019-07-18 11:40 | disposition home or self-care (01) | DRG 392 ==
LOC: D.ER 18:59 → D.M2 21:25
PROVIDERS: Emergency Medicine; ADMIT Internal Medicine Nephrology; ATTEND Internal Medicine Nephrology
DX: A08.4 Viral intestinal infection, unspecified (principal); J96.11 Chronic respiratory failure with hypoxia; A09 Infectious gastroenteritis and colitis, unspecified; I10 Essential (primary) hypertension; E11.9 Type 2 diabetes mellitus without complications; J44.9 Chronic obstructive pulmonary disease, unspecified; F41.8 Other specified anxiety disorders

== ENCOUNTER → 2019-09-12 09:33 | Outpatient (CLI) | payer BC, MEDICARE ==
[2019-07-17 16:46] VITALS: BMI 30.5
== END | disposition home or self-care (01) ==
LOC: D.RAD 09:30
PROVIDERS: ATTEND Internal Medicine Gastroenterology
DX: R10.32 Left lower quadrant pain (principal); R11.0 Nausea; R19.7 Diarrhea, unspecified